=== PATIENT | female | born 1955 | race Caucasian/White ===

== ENCOUNTER 2022-04-15 00:20 | Day surgery (SDC) | payer MEDICARE, SELFPAY ==
[2022-04-02 10:45] VITALS: BMI 22.4
--- NOTE | 2022-04-12 11:09 | SUR.PREOP ---
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 Left message on [place] machine.
--- NOTE | 2022-04-14 17:23 | PM.HPGS ---
History of Present Illness History of Present Illness Consent: Risks, benefits, and alternatives have been discussed and questions answered. Patient agrees to proceed with procedure. Chief complaint: neoplasm screening Narrative: Anna Arceo is a 66 year old female reerred for colon cancer screening. 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 Gender identity (if verbalized by the patient): Female Spiritual care concerns: No Meds Home Medications and Allergies Home Medications Medication Instructions Recorded Confirmed Type amlodipine 10 mg tablet 10 mg PO DAILY #90 tabs 01/10/22 04/15/22 Rx Allergies Allergy/AdvReac Type Severity Reaction Status Date / Time No Known Allergies Allergy Verified 04/15/22 06:21 Exam Resp: Auscultation: clear to auscultation bilaterally Cardio: Rate: regular rate Rhythm: regular rhythm GI: GI Palp: Yes Soft to palpation and No Tenderness to palpation present (GI) Assessment and Plan Assessment and plan (1) Screening for malignant neoplasm of colon: Code(s): Z12.11 - Encounter for screening for malignant neoplasm of colon Status: Acute Assessment and Plan: Colonoscopy with possible biopsy or polypectomy or cautery or injection of substances.
[2022-04-15 06:22] VITALS: BP 152/91; PULSE 76; RESP 18; TEMP 36.4; O2SAT 97; BMI 21.9
[2022-04-15] MEDS: LACTATED RINGERS 1,000 ML 150 ML IV CONT (06:34)
--- NOTE | 2022-04-15 07:28 | WPDANESEPPF ---
Anes - Initial Pre Proc Eval Procedure: Operation Date: 04/15/22 07:30 Proposed Procedures p Screening Colonoscopy - Abdon Tejeda MD Date/Time: 04/15/22 07:28 Surgeon: Abdon Tejeda MD Pre Op Diagnosis: neoplasm screening Patient Data Age: 66 Gender: F Height: 1.55 m Weight: 52.8 kg Last Vital Signs Temp 97.5 F L 04/15/22 06:22 Pulse 76 04/15/22 06:22 Resp 18 04/15/22 06:22 BP 152/91 H 04/15/22 06:22 Pulse Ox 97 04/15/22 06:22 O2 Del Method Room Air 04/15/22 06:22 Allergies Allergy/AdvReac Type Severity Reaction Status Date / Time No Known Allergies Allergy Verified 04/15/22 06:21 Home Medications Medication Instructions Recorded Confirmed Type amlodipine 10 mg tablet 10 mg PO DAILY #90 tabs 01/10/22 04/15/22 Rx Patient hx anesthesia problems: none Family hx anesthesia problems: none Results Review: All pre-operative results and documents have been reviewed as part of the pre-operative evaluation. 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 Informed Consent: The patient's anesthetic plan and its attendant risks and benefits were discussed with the patient/family/POA. Questions were solicited and answers provided to the satisfaction of the patient/family/POA.
[2022-04-15 07:48] VITALS: BP 124/73; PULSE 60; RESP 19; O2SAT 99
[2022-04-15 07:58] VITALS: BP 123/76; PULSE 58; RESP 14; O2SAT 100
[2022-04-15 08:08] VITALS: BP 152/83; PULSE 59; RESP 22; O2SAT 100
== END 2022-04-15 08:15 | disposition home or self-care (01) ==
PROVIDERS: PCP Nurse Practitioner Family; Visit Provider Internal Medicine Gastroenterology
PROC: 0DJD8ZZ Inspection of Lower Intestinal Tract, Via Natural or Artificial Opening Endoscopic (ICD-10-PCS; CPT 45378; principal; 2022-04-15 07:30)
DX: Z12.11 Encounter for screening for malignant neoplasm of colon (principal); D12.0 Benign neoplasm of cecum
CPT/HCPCS: 45380; 45381; 88305; J2704; J7120

== ENCOUNTER 2022-05-06 07:58 | Outpatient (CLI) | payer MEDICARE, SELFPAY ==
--- NOTE | 2022-05-06 08:47 | ECG_ITS ---
Measurements Intervals [place] Rate: 61 P: 68 DC: 191 QRS: 49 QRSD: 130 T: 29 QT: 443 QTc: 448 Interpretive Statements SINUS RHYTHM WITH SINUS ARRHYTHMIA INCOMPLETE LEFT BUNDLE BRANCH BLOCK [120+ ms QRS DURATION, 80+ ms Q/S IN V1/V2, 85+ ms R IN I/aVL/V5/V6] NO PREVIOUS ECG AVAILABLE FOR COMPARISON Electronically Signed On 05-06-2022 17:00:17 CDT by Damian Parr M.D.
[2022-05-06 09:19] LABS: Hematocrit 37.3 % (37.0-47.0); Hemoglobin 12.4 g/dL (12.0-15.0)
== END 2022-05-06 07:59 | disposition home or self-care (01) ==
LOC: ANHSURGERY 08:02
PROVIDERS: Anesthesiology; PCP Nurse Practitioner Family; Visit Provider Surgery
DX: Z01.818 Encounter for other preprocedural examination (principal); D12.6 Benign neoplasm of colon, unspecified; R93.1 Abnormal findings on diagnostic imaging of heart and coronary circulation; I44.7 Left bundle-branch block, unspecified
CPT/HCPCS: 36415; 85014; 85018; 86850; 86900; 86901; 93005

== ENCOUNTER 2022-05-07 13:52 | Inpatient (IN) | payer MEDICARE, SELFPAY ==
[2022-05-06 07:53] VITALS: BP 142/72; PULSE 70; RESP 18; TEMP 37.1; O2SAT 100; BMI 22.6
--- NOTE | 2022-05-06 07:53 | PC.NURSE ---
PRE-OP INSTRUCTIONS, PLEASE READ CAREFULLY Report to the Outpatient Waiting Room, entrance under the green pavilion located off [facility], at time _0730_ on date _05/07/22_. OR Time: _0930_. PACK A SMALL OVERNIGHT BAG - A mask is required within the hospital. - You and your visitor will be asked to self-screen and do not enter if you have any COVID symptoms. - Only one visitor and NO children visitors are allowed at this time. - The patient visitor is requested to leave or wait in car when not with patient due to restrictions. Patients may have clear liquids (water, carbonated beverages, clear teas, apple juice) until 3 hours prior to surgery (0630 AM) with a maximum of 20 ounces. - No food from midnight until time of surgery Take the following medications with a SIP of water the morning of surgery: _AMLODIPINE_ Medications to discontinue per physician _MULTIVITAMIN_, States last dose was 05/05/22_ Please no make-up, nail upper sorbian, hairspray, perfume, deodorant, or body powder the day of surgery. No jewelry (including any body piercings) or valuables the day of surgery, leave them at home. Please take a shower or bath the night before, or the morning of, surgery with an antibacterial soap. Wear comfortable, loose fitting clothing. - Jewelry must be removed prior to entering the operating room. Rings and piercings that are not removed may be cut off. - The hospital will not accept responsibility for valuables. - Please leave all valuables, including medications, at home the day of surgery. If you are going home after surgery, a licensed pick up driver must drive you home. - NO public transportation without another adult. - We recommend that an adult stay with you for 24 hours following discharge. - We also recommend that you do not drive, make important decision, drink alcoholic beverages, or take any drugs that were not prescribed by your health care provider for at least 24 hours after your discharge time. Follow any additional instructions given to you from your surgeon. DIET, BOWEL PREP, PRE-OP ANTIBIOTICS, HIBICLENS SHOWER DAY BEFORE AND AM OF SURGERY If you or anyone in your household have experienced Covid symptoms in the past week, please notify your surgeon or the nurse liaison at the phone number below for possible testing. Instructions given to ____PT and asked if any additional questions and then verbalized understanding. Patient advised to call surgeon office or pre surgery nurse liaison [phone] if any additional questions.
--- NOTE | 2022-05-06 13:28 | WPDANESEPPF ---
Anes - Initial Pre Proc Eval Procedure: Operation Date: 05/07/22 09:30 Proposed Procedures p Laparoscopic Right Hemicolectomy, Davinci Assisted - Piter Gonzalez DO Date/Time: 05/06/22 13:28 Surgeon: Piter Gonzalez DO Pre Op Diagnosis: tubular adenoma of colon Patient Data Age: 66 Gender: F Height: 1.55 m Weight: 54.5 kg Last Vital Signs Temp 37.1 C 05/06/22 07:53 Pulse 70 05/06/22 07:53 Resp 18 05/06/22 07:53 BP 142/72 H 05/06/22 07:53 Pulse Ox 100 05/06/22 07:53 O2 Del Method Room Air 05/06/22 07:53 Allergies Allergy/AdvReac Type Severity Reaction Status Date / Time No Known Allergies Allergy Verified 05/06/22 08:15 Home Medications Medication Instructions Recorded Confirmed Type amlodipine 10 mg tablet 10 mg PO DAILY #90 tabs 04/15/22 05/06/22 Rx erythromycin 500 mg tablet See Rx Instructions .Route 05/03/22 05/06/22 Rx .COMPLEX #6 tabs neomycin 500 mg tablet See Rx Instructions .Route 05/03/22 05/06/22 Rx .COMPLEX #6 tabs multivitamin 1 tablet PO QAM 05/06/22 05/06/22 History ECG: Date of Service: 05/06/22 Procedure(s): CA 12 lead EKG Accession Number(s): [id number] cc: ~ ? Measurements Intervals? [place]? Rate: ? 61 ? P:? 68 [place]: ? 191? QRS:? 49 QRSD: ? 130? T:? 29 QT: ? 443? QTc:? 448? Interpretive Statements SINUS RHYTHM WITH SINUS ARRHYTHMIA INCOMPLETE LEFT BUNDLE BRANCH BLOCK [120+ ms QRS DURATION, 80+ ms Q/S IN V1/V2, 85+ ms R IN I/aVL/V5/V6] NO PREVIOUS ECG AVAILABLE FOR COMPARISON Electronically Signed On 05-06-2022 17:00:17 CDT by Damian Parr M.D. Patient hx anesthesia problems: none Family hx anesthesia problems: none Results Review: All pre-operative results and documents have been reviewed as part of the pre-operative evaluation. [facility] Past Medical History Medical History (Updated 05/06/22 @ 13:29 by Mateusz Abdul MD) BMI 21.0-21.9, adult Body mass index [BMI] 22.0-22.9, adult Hypertension Tubular adenoma of colon Surgical History Surgical History H/O lumpectomy History of elbow surgery Family History Family History Father Lung cancer Tobacco abuse Mother Hypertension Arthritis Sibling Hypertension Unknown Heart disease Arthritis Social History Social History Smoking status: Never smoker Second hand tobacco smoke exposure: No Alcohol intake: never Substance use: never Substance use type: does not use Living arrangements: alone 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 Informed Consent: The patient's anesthetic plan and its attendant risks and benefits were discussed with the patient/family/POA. Questions were solicited and answers provided to the satisfaction of the patient/family/POA.
[2022-05-07] VITALS (13 sets, daily range): BP systolic 123–152; BP diastolic 57–91; PULSE 58–92; RESP 12–20; TEMP 36–36.6; O2SAT 95–100
--- NOTE | 2022-05-07 08:46 | WPDHPUPDATE1 ---
History and Physical Update Update Date/Time: 05/07/22 08:46 History and Physical has been reviewed, including an updated exam of the patient. There are NO changes in the patient's condition. Risks, benefits, and alternatives have been discussed and questions answered. Patient agrees to proceed with procedure.
[2022-05-07] MEDS: LACTATED RINGERS 1,000 ML 30 ML IV CONT ×2 (09:00→12:38)
[2022-05-07] MEDS: KETOROLAC 15 MG/ML VIAL (*BKC) IV PUSH (09:20)
[2022-05-07] MEDS: ACETAMINOPHEN 500 MG TABLET 1000 MG PO ×2 (09:20→16:00)
[2022-05-07] MEDS: ceFAZolin 2 GM/D5W 50 ML 2 GM/50 ML BAG IVPB (09:29)
[2022-05-07] MEDS: metroNIDAZOLE 500 MG/ISO 100ML 500 MG/100 ML BAG 100 MG IVPB (09:29)
--- NOTE | 2022-05-07 12:44 | W.PM.PROC2 ---
Procedure Note - Detailed Date of Procedure 05/07/22 Pre-op Diagnosis tubular adenoma of colon Post-op Diagnosis Same Procedure Performed Laparoscopic right hemicolectomy with ileocolic anastomosis, da Earlene assisted Surgeon Piter Gonzalez DO Anesthesia General and Local (Exparel) Indications This is a 66-year-old woman who presented with a recent finding a large polyp on colonoscopy. She underwent a screening colonoscopy on 04/15/2022 and was found to have a large cecal polyp that was unable to be removed endoscopically. This was biopsied and tattooed. Pathology showed evidence of tubular adenoma. She had no other concerning risk factors for colon cancer. Discussions were made with the patient about treatment options and decision was made to proceed with robotic assisted laparoscopic right hemicolectomy. Findings Laparoscopic right hemicolectomy with ileocolic anastomosis was performed. The tattooed region was identified at the cecum and no other intra-abdominal abnormalities were noted. A robotic assisted laparoscopic approach was utilized. A medial to lateral mobilization was performed and a high ligation of the ileocolic vessels was performed. The right colon was then removed and a [id number] isoperistaltic ileocolic anastomosis was performed using a 45 mm Sureform robotic stapler. ICG was utilized to confirm adequate perfusion to the proximal and distal resection margins and again after the anastomosis to confirm adequate perfusion to the anastomosis. Description of Procedure Procedure as well as risks, benefits, and alternatives were discussed with the patient. Written consent was obtained and placed chart prior to procedure. Patient was brought back to surgical suite. She was placed supine on operating table. Time-out was done to confirm patient and procedure. She was then intubated by the anesthesia department. Her abdomen was prepped and draped in sterile fashion using chlorhexidine prep. A 12 mm left upper quadrant incision was made using a 15 blade scalpel and a 5 mm Optiview trocar was then advanced through the abdominal layers under direct visualization. Once inside the abdominal cavity, carbon dioxide insufflation was used to create a pneumoperitoneum. The camera was inserted in the abdominal cavity was carefully inspected. The tattooed region of the colon was identified but no other abnormalities were seen. The patient was then placed in slight Trendelenburg position and rotated to the left. An 8 mm incision was made in the suprapubic midline region and an 8 mm trocar was inserted under direct visualization. Another 8 mm incision was made in the left lower quadrant and an 8 mm trocar was inserted under direct visualization. One more 8 mm incision was made in the left lateral abdomen an 8 mm trocar was inserted under direct visualization. The 5 mm port was then removed and a 12 mm robotic port was placed under direct visualization. Exparel was infiltrated locally around the lateral abdominal vieira bilaterally. The robotic arms were then brought up to the bedside and secured to the ports and the robotic camera and instruments were inserted. I then moved over to the robotic console and took control of the camera and instruments. Carefully inspected the abdominal cavity. The omentum and transverse colon were reflected cephalad over the stomach and liver. The cecum was then tented anteriorly towards the right lower quadrant abdominal wall and the ileocolic pedicle was visualized. Scissors with electrocautery were then used to score on the inferior surface of the ileocolic pedicle and the retroperitoneal plane was carefully entered. The medial to lateral dissection was carried out carefully using scissors with electrocautery. I identified the duodenum and swept this posteriorly while the remainder of the ileocolic pedicle was carefully isolated. The ileocolic vein and artery were then ligated separately using the vessel sealer.
[2022-05-07] MEDS: fentaNYL CITRATE INJ (*CRX) 100 MCG/2 ML VIAL 25 MCG IV PUSH ×4 (13:04→13:30)
[2022-05-07] MEDS: LACTATED RINGERS 1,000 ML 100 ML IV CONT (14:59)
--- NOTE | 2022-05-07 16:37 | PC.NURSE ---
Acetamenophen dosage due at 14:00 missed, pt. arrived late to floor. Ok per Vane in Pharmacy to miss dose.
[2022-05-08] MEDS: ACETAMINOPHEN 500 MG TABLET 1000 MG PO ×5 (00:28→23:58)
[2022-05-08] MEDS: LACTATED RINGERS 1,000 ML 100 ML IV CONT (03:18)
[2022-05-08 03:37] VITALS: BP 126/60; PULSE 56; RESP 18; TEMP 36.6; O2SAT 96
[2022-05-08 05:39] LABS: Basophils Percent Auto 0.1 % (0.2-1.2); Hemoglobin 11.8 g/dL (12.0-15.0); Immature Granulocyte Absolute 0.05 K/mm3 (0.00-0.031); Immature Granulocyte Percent A 0.4 % (0-0.5); Lymphocytes Absolute Auto 0.69 K/mm3 (0.9-3.2); Lymphocytes Percent Auto 5.8 % (18.3-44.2); Mean Corpuscular HGB Conc 32.8 g/dl (32-36); Mean Corpuscular Hemoglobin 30.1 pg (26-34); Mean Corpuscular Volume 91.8 fl (80-100); Mean Platelet Volume 9.9 fl (7.4-10.4); Monocytes Absolute Auto 0.7 K/mm3 (0.1-0.6); Monocytes Percent Auto 5.8 % (2.6-8.5); Neutrophils Absolute Auto 10.4 K/mm3 (1.3-6.7); Neutrophils Percent Auto 87.9 % (45.5-73.1); Platelet Count Result 262 k/mm3 (150-375); Red Blood Count 3.92 M/mm3 (4.2-5.4); Red Cell Distribution Width 13.8 % (11.5-14.5); White Blood Count 11.9 K/mm3 (4.5-10.0)
[2022-05-08 05:48] LABS: Anion Gap 2 mmol/L (8-16); Blood Urea Nitrogen 7 mg/dL (7-17); Calcium 8.7 mg/dL (8.4-10.2); Carbon Dioxide 24 mmol/L (22-30); Chloride 106 mmol/L (98-107); Estimated CRCL calculation 46 ml/min; Estimated Glomerular Filt Rate > 60; Glucose 124 mg/dL (65-110); Sodium 132 mmol/L (137-145)
[2022-05-08 07:53] VITALS: BP 128/67; PULSE 72; RESP 16; TEMP 36.3; O2SAT 97
[2022-05-08] MEDS: amLODIPine BESYLATE 5 MG TABLET 10 MG PO (09:29)
[2022-05-08] MEDS: ENOXAPARIN 40 MG/0.4 ML SYRINGE SUB-Q (09:30)
--- NOTE | 2022-05-08 09:53 | PM.PNGS ---
Progress Note: A&P Assessment and Plan (1) Tubular adenoma of colon: Code(s): D12.6 - Benign neoplasm of colon, unspecified Status: Acute Assessment and Plan: POD#1 and doing well. Will advance to full liquids. Stop IV fluids. Encouraged increasing activity and walking the halls today. Pathology pending. Repeat labs tomorrow. (2) Hypertension: Qualifiers: Hypertension type: unspecified Qualified Code(s): I10 - Essential (primary) hypertension Code(s): I10 - Essential (primary) hypertension Status: Acute Assessment and Plan: BP stable. Home medications continued post-op. Subjective Subjective Date/Time Seen: 05/08/22 09:10 Post Op day: 1 (Laparoscopic R hemicolectomy, da Earlene assisted) Patient reports: tolerating liquids well, flatus, diarrhea (two small liquid stools this am) and afebrile Interval history: Patient sitting in the chair for breakfast this morning. She is doing well and pain is being controlled with Tylenol. No nausea or bloating with clear liquids. Tolerating walking in the room. No specific complaints at this time. Review of Systems Review of Systems: All systems reviewed & are unremarkable except as noted in HPI and below Exam Const: General: comfortable and no acute distress Orientation/consciousness: patient oriented x3 Resp: Effort & Inspection: normal respiratory effort Auscultation: clear to auscultation bilaterally Cardio: Rate: regular rate Rhythm: regular rhythm GI: Inspection: non-distended and incision (incisions dry with glue intact) GI Palp: Yes Soft to palpation, Yes Tenderness to palpation present (GI) (incisional) and No Guarding due to palpation present (GI) Auscultation: normal bowel sounds (good BS) Neuro: General: moves all extremities and no focal motor deficits Extrem: General: no calf tenderness and no edema Psych: Mental Status: mental status grossly normal Insight: Good insight present (Psych) Objective Data Vital Signs Vital Signs: Vital Signs - 24 hr 05/07/22 12:38 05/07/22 12:50 05/07/22 13:05 Temperature 97.5 F L Pulse Rate 85 67 81 Respiratory Rate 12 14 20 Blood Pressure 134/71 133/70 144/91 H Pulse Oximetry 95 99 100 Oxygen Delivery Simple Face Mask Simple Face Mask Room Air Oxygen Flow Rate 8 8 05/07/22 13:20 05/07/22 13:35 05/07/22 13:50 Temperature Pulse Rate 86 71 70 Respiratory Rate 20 16 20 Blood Pressure 152/80 H 138/80 134/73 Pulse Oximetry 99 97 97 Oxygen Delivery Room Air Room Air Room Air Oxygen Flow Rate 05/07/22 14:15 05/07/22 15:10 05/07/22 14:15 Temperature 96.8 F L 96.8 F L Pulse Rate 78 78 Respiratory Rate 18 18 Blood Pressure 140/67 140/67 Pulse Oximetry 95 95 Oxygen Delivery Room Air Oxygen Flow Rate 05/07/22 14:30 05/07/22 15:00 05/07/22 16:13 Temperature 97.4 F L 97.1 F L 97 F L Pulse Rate 80 78 92 Respiratory Rate 20 20 18 Blood Pressure 139/77 131/60 138/72 Pulse Oximetry 96 98 97 Oxygen Delivery Oxygen Flow Rate 05/07/22 19:11 05/07/22 20:00 05/07/22 23:29 Temperature 97.1 F L 97.8 F Pulse Rate 65 58 L Respiratory Rate 16 17 Blood Pressure 123/71 131/71 Pulse Oximetry 100 97 Oxygen Delivery Room Air Oxygen Flow Rate 05/08/22 03:37 05/08/22 07:53 Temperature 97.8 F 97.4 F L Pulse Rate 56 L 72 Respiratory Rate 18 16 Blood Pressure 126/60 128/67 Pulse Oximetry 96 97 Oxygen Delivery Oxygen Flow Rate Intake/Output Intake/Output: Intake & Output 05/05/22 05/06/22 05/07/22 05/08/22 23:59 23:59 23:59 23:59 Intake Total 670 1200 Output Total 700 800 Balance -30 400 Meds/Results Medications: Active Medications Generic Name Dose Route Start Last Admin Trade Name Freq PRN Reason Stop Dose Admin Acetaminophen 1,000 mg 05/07/22 13:52 05/08/22 06:05 Acetaminophen 500 Mg Tablet PO 1,000 mg Q6HR ANTHONY Administration Amlodipine Besylate 10 mg 05/08/22 09:00
[2022-05-08 13:48] VITALS: BP 110/75; PULSE 60; RESP 12; TEMP 36.4; O2SAT 100
[2022-05-08 18:06] VITALS: BP 124/66; PULSE 62; RESP 16; TEMP 36.2; O2SAT 100
[2022-05-08 20:21] VITALS: BP 104/52; PULSE 60; RESP 12; TEMP 36.4; O2SAT 99
[2022-05-09 00:25] VITALS: BP 115/64; PULSE 64; RESP 20; TEMP 36.9; O2SAT 97
[2022-05-09 05:11] VITALS: BP 126/68; PULSE 60; RESP 16; TEMP 36.4; O2SAT 97
[2022-05-09] MEDS: ACETAMINOPHEN 500 MG TABLET 1000 MG PO ×2 (05:57→12:10)
--- NOTE | 2022-05-09 08:09 | P.PNGS_ITS ---
Progress Note: A&P Assessment and Plan (1) Cecal polyp: Code(s): K63.5 - Polyp of colon Status: Acute Assessment and Plan: Will advance to regular diet today. Possibly home this afternoon if continuing to progress. Increase activity. Subjective Subjective Date/Time Seen: 05/09/22 08:09 Interval history: Doing well. Bowels moving. tolerating full liquids. No bloating or nausea. Pain controlled. Exam 2 GI: Inspection: non-distended and incision (intact with glue) Auscultation: normal bowel sounds Objective Data Vital Signs Vital Signs: Vital Signs - 24 hr 05/08/22 12:00 05/08/22 13:48 05/08/22 18:06 Temperature 36.4 C 36.2 C L Pulse Rate 60 62 Respiratory Rate 12 16 Blood Pressure 110/75 124/66 Pulse Oximetry 100 100 Oxygen Delivery Room Air 05/08/22 20:21 05/08/22 20:00 05/09/22 00:25 Temperature 36.4 C 36.9 C Pulse Rate 60 64 Respiratory Rate 12 20 Blood Pressure 104/52 L 115/64 Pulse Oximetry 99 97 Oxygen Delivery Room Air 05/09/22 05:11 Temperature 36.4 C Pulse Rate 60 Respiratory Rate 16 Blood Pressure 126/68 Pulse Oximetry 97 Oxygen Delivery Intake/Output Intake/Output: Intake & Output 05/06/22 05/07/22 05/08/22 05/09/22 23:59 23:59 23:59 23:59 Intake Total 670 3760 50 Output Total 700 2000 900 Balance -30 1760 -850 Meds/Results Medications: Active Medications Generic Name Dose Route Start Last Admin Trade Name Freq PRN Reason Stop Dose Admin Acetaminophen 1,000 mg 05/07/22 13:52 05/09/22 05:57 Acetaminophen 500 Mg Tablet PO 1,000 mg Q6HR ANTHONY Administration Amlodipine Besylate 10 mg 05/08/22 09:00 05/08/22 09:29 Amlodipine Besylate 5 Mg Tablet PO 10 mg DAILY ANTHONY Administration Enoxaparin Sodium 40 mg 05/08/22 09:00 05/08/22 09:30 Enoxaparin 40 Mg/0.4 Ml Syringe SUB-Q 40 mg DAILY ANTHONY Administration Morphine Sulfate 2 mg 05/07/22 13:52 Morphine Sulfate (*Crx) 2 Mg/Ml Inj IV PUSH Q2H PRN Pain Rated 4-6 Morphine Sulfate 4 mg 05/07/22 13:52 Morphine Sulfate (*Crx) 4 Mg/Ml Inj IV PUSH Q2H PRN Pain Rated 7-10 Ondansetron HCl 4 mg 05/07/22 13:52 Ondansetron Inj 4 Mg/2 Ml Vial IV PUSH Q4H PRN Nausea And Vomiting Oxycodone HCl 2.5 mg 05/07/22 13:52 Oxycodone Hcl (*Crx) 2.5 Mg Tab Ir PO Q4H PRN Pain Rated 4-6 Oxycodone HCl 5 mg 05/07/22 13:52 Oxycodone Hcl (*Crx) 5 Mg Tab Ir PO Q4H PRN Pain Rated 7-10
[2022-05-09] MEDS: ENOXAPARIN 40 MG/0.4 ML SYRINGE SUB-Q (08:51)
[2022-05-09] MEDS: amLODIPine BESYLATE 5 MG TABLET 10 MG PO (08:53)
[2022-05-09 09:04] LABS: Hematocrit 38.6 % (37.0-47.0); Hemoglobin 12.6 g/dL (12.0-15.0); Mean Corpuscular HGB Conc 32.6 g/dl (32-36); Mean Corpuscular Hemoglobin 30.4 pg (26-34); Mean Platelet Volume 9.8 fl (7.4-10.4); Platelet Count Result 267 k/mm3 (150-375); Red Blood Count 4.15 M/mm3 (4.2-5.4); Red Cell Distribution Width 14.1 % (11.5-14.5); White Blood Count 8.3 K/mm3 (4.5-10.0)
[2022-05-09 09:11] LABS: Anion Gap 4 mmol/L (8-16); Blood Urea Nitrogen 9 mg/dL (7-17); Calcium 9.2 mg/dL (8.4-10.2); Carbon Dioxide 25 mmol/L (22-30); Chloride 104 mmol/L (98-107); Estimated CRCL calculation 52 ml/min; Estimated Glomerular Filt Rate > 60; Glucose 91 mg/dL (65-110); Potassium 3.8 mmol/L (3.4-5.0); Sodium 133 mmol/L (137-145)
[2022-05-09 14:25] VITALS: BP 114/55; PULSE 80; RESP 16; TEMP 36.4; O2SAT 100
--- NOTE | 2022-05-09 16:38 | PM.DS ---
DS: Admitting Diagnosis Discharge Date 05/09/22 Admitting Diagnosis Polyp of Cecum DS: Discharge Diagnosis Discharge Diagnosis (1) Tubulovillous adenoma of colon: Code(s): D12.6 - Benign neoplasm of colon, unspecified Status: Acute DS: Summary Hospital Course Reason for hospitalization: Cecal polyp Hospital Course: This is a 66-year-old woman who presented for robotic assisted laparoscopic right hemicolectomy on 05/07/2022 for a tubular adenoma the cecum. Surgery was uncomplicated and she was admitted to the surgical postoperatively. She was started on a clear liquid diet and her diet and activity were gradually advanced as tolerated. On postop day 1 she was doing well and was advanced to a full liquid diet. Her pain was well controlled and she was getting up with limited assistance. On postop day 2 she was advanced to a regular diet. She was tolerating this well and was remaining hemodynamically stable. The pathology came back as a tubulovillous adenoma within the cecum. She was tolerating her regular diet and bowels were moving. She was discharged on 05/09/2022. Status at Discharge Functional status at discharge: independent ambulation Overall status at discharge: patient is progressing back to baseline Time Spent with Patient Time attestation: Total time spent providing and/or coordinating discharge services: Time spent: Less than 30 minutes Exam Resp: Effort & Inspection: normal respiratory effort Auscultation: clear to auscultation bilaterally Cardio: Rate: regular rate Rhythm: regular rhythm Heart sounds: S1 normal heart sound present and S2 normal heart sound present GI: Inspection: non-distended and incision ( Intact with glue) GI Palp: Yes Soft to palpation, Yes Tenderness to palpation present (GI) ( incisional) and No Guarding due to palpation present (GI) DS: Data Data Completed and Pending Completed studies during hospitalization: Pending at discharge 05/07/22 12:07 Surgical [PTH] Routine Discharge Plan Discharge Attending physician on discharge: Piter Gonzalez Consulting providers: Cherri Neil Discharging Clinician: Piter Gonzalez Patient Disposition: Home, Self-Care Activity: other - see discharge instructions Diet: low fiber Wound Care Instructions: other - see discharge instructions Discharge Instructions: Postop instructions no lifting greater than 10 lb for the next 6 weeks continue soft, low-fiber diet for the next week, then may resume regular diet without restrictions walk around house at least 10-15 minutes 4 times daily take OTC Tylenol 500 mg 2 tablets every 6 hours as needed for pain call office if pain is not controlled with Tylenol call office for worsening pain, fevers, problems with bowels moving, or other concerns with incisions Patient Instructions: Antibiotic Form, Amlodipine (By mouth) Stand Alone Forms: General Discharge Information Follow-up/Referrals: Piter Gonzalez, DO [Physician] - Keep Reg. Scheduled Appt. Discharge Medications: Continued multivitamin Tablet 1 tablet PO QAM amlodipine 10 mg tablet 10 mg PO DAILY Qty: 90 0RF Label Comments: QAM Discontinued neomycin 500 mg tablet See Rx Instructions .ROUTE .COMPLEX Qty: 6 0RF Rx Instructions: Take 2 tablets by mouth at 1PM, 2PM, and 11PM; erythromycin 500 mg tablet See Rx Instructions .ROUTE .COMPLEX Qty: 6 0RF Rx Instructions: Take 2 tablets by mouth at 1PM, 2PM, and 11PM; No Action ciprofloxacin HCl [Cipro] 500 mg tablet 500 mg PO Q12H 5 Days Qty: 10 0RF metronidazole 500 mg tablet 500 mg PO Q12H 5 Days Qty: 10 0RF Date of admission: 05/07/22 13:52 Primary Care Provider: Melvin Mayfield Admitting Provider: Piter Gonzalez Attending physician on admission: Piter Gonzalez Condition: Improved
== END 2022-05-09 17:40 | disposition home or self-care (01) | DRG 331 ==
LOC: ANH2MED 13:55
PROVIDERS: Nurse Practitioner Family; Admitting Provider Surgery; PCP Nurse Practitioner Family; Visit Provider Surgery
PROC: 0DTF4ZZ Resection of Right Large Intestine, Percutaneous Endoscopic Approach (ICD-10-PCS; principal; 2022-05-07 09:30)
DX: D12.6 Benign neoplasm of colon, unspecified (principal); I10 Essential (primary) hypertension
CPT/HCPCS: 36415; 80048; 85014; 85018; 85025; 85027; 86850; 86900; 86901; 88309; 93005; A9270; C9290; J0690; J1100; J1170; J1650; J1885; J2250; J2405; J2704; J2710; J3010; J7030; J7120

== ENCOUNTER 2022-05-14 00:07 | Emergency (ER) | payer MEDICARE, SELFPAY ==
[2022-05-14] VITALS (22 sets, daily range): BP systolic 101–136; BP diastolic 50–63; PULSE 69–93; RESP 16–28; TEMP 36.9; O2SAT 95–100
--- NOTE | ~2022-05-14 | CT_ITS ---
EXAMINATION: CT abdomen pelvis w con DATE: 05/14/2022 01:14 INDICATION: Right lower quadrant abdominal pain. Diarrhea. TECHNIQUE: Computed tomography (CT) of the abdomen and pelvis was performed with 100 mL Omnipaque 350 intravenous contrast. Automated exposure control and iterative reconstruction technique were employe d. The dose-length product was 186.57 mGy-cm. COMPARISON: None. FINDINGS: The visualized portions of the lung bases demonstrate mild atelectasis. No pleural effusion . The heart size is normal. No pericardial effusion. There are cysts in the liver measuring up to 3.1 cm. The gallbladder, spleen, pancreas, adrenal glands, and kidneys are normal. There is mild wall th ickening of the colon, consistent with colitis. There is liquid stool in the colon correlating with t he symptom of diarrhea. There are changes of ileocolic anastomosis. The periuterine veins and left ov alex vein are enlarged, consistent with pelvic venous insufficiency. There are no pathologically enl arged lymph nodes. There is physiologic fluid in the pelvis. There is gas in left abdominal wall, con sistent with recent surgery. There is mild lumbar spondylosis. IMPRESSION: 1. Colitis. 2. Pelvic venous insufficiency. Reviewed, dictated and finalized at location A.
--- NOTE | 2022-05-14 00:29 | ED.NAVMDI ---
HPI - Nausea/Vomiting/Diarrhea General Chief complaint: Nausea/Vomiting/Diarrhea Stated complaint: diarrhea and abd pain s/p colectomy Time Seen by Provider: 05/14/22 00:20 History of Present Illness HPI Narrative: 66-year-old female presents to the emergency room for evaluation of increased frequency of diarrhea. Patient states she recently had a colon polyp and appendectomy 7 days ago is experiencing loose and watery stools since her procedure. States today in a 2-hour period she experienced 5 diarrhea stools. Denies any blood in her stool. Complains of a mild right lower quadrant abdominal pain. Denies fever. Related Data Home Medications Medication Instructions Recorded Confirmed multivitamin 1 tablet PO QAM 05/06/22 05/06/22 Allergies Allergy/AdvReac Type Severity Reaction Status Date / Time No Known Allergies Allergy Verified 05/14/22 00:15 Review of Systems Review of Systems: CONSTITUTIONAL: Denies fever, chills, or sweats. EYES: Denies visual changes, redness, or discharge. ENT: Denies rhinorrhea, congestion, sore throat, or otalgia. CARDIOVASCULAR: Denies chest pain, palpitations, or edema. RESPIRATORY: Denies cough or dyspnea. GASTROINTESTINAL: Reports right lower quadrant pain, diarrhea GENITOURINARY: Denies dysuria or hematuria. SKIN: Denies rash or itching. MUSCULOSKELETAL: Denies back pain, joint pain, or myalgia. NEUROLOGIC: Denies headache, numbness, dizziness, or weakness. PSYCHIATRIC: Denies anxiety or depression. 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 HEAD: Normocephalic, atraumatic. EYES: Conjunctivae normal, PERRLA and EOMI. CHEST: Clear to auscultation. No respiratory distress. No wheezes rales or rhonchi. No tenderness. HEART: Regular rate and rhythm. No murmur heard. Normal peripheral pulses. ABDOMEN: Soft, right lower quadrant tenderness, nondistended, normal active bowel sounds. EXTREMITIES: Normal range of motion. No edema. No clubbing or cyanosis SKIN: Warm, dry, no rash. No noted wounds NEURO: No focal deficits. Alert and oriented x3. MAEW. CN's II-XI intact bilaterally, normal gait PSYCH: Cooperative. Normal mood and affect. Course Vital Signs Vital signs: Vital Signs Temperature 36.9 C 05/14/22 00:11 Pulse Rate 83 05/14/22 00:11 Respiratory Rate 20 05/14/22 00:11 Blood Pressure 136/51 L 05/14/22 00:11 Pulse Oximetry 100 05/14/22 00:11 Oxygen Delivery Room Air 05/14/22 00:11 Temperature 36.9 C 05/14/22 00:11 Pulse Rate 77 05/14/22 01:16 Respiratory Rate 18 05/14/22 01:16 Blood Pressure 119/63 05/14/22 01:16 Pulse Oximetry 100 05/14/22 01:16 Oxygen Delivery Room Air 05/14/22 00:11 MDM - Nausea/Vomiting/Diarrhea Lab Data Result diagrams: 05/14/22 00:32 05/14/22 00:32 Labs: Lab Results 05/14/22 05/14/22 05/14/22 Range/Units 00:32 00:32 00:32 WBC 16.5 H (4.5-10.0) K/mm3 RBC 4.20 (
[2022-05-14 00:40] LABS: Basophils Absolute Auto 0.1 K/mm3 (0.0-0.1); Basophils Percent Auto 0.3 % (0.2-1.2); Eosinophils Absolute Auto 0.1 K/mm3 (0-0.3); Eosinophils Percent Auto 0.5 % (0-4.4); Hematocrit 38.6 % (37.0-47.0); Hemoglobin 12.6 g/dL (12.0-15.0); Immature Granulocyte Absolute 0.08 K/mm3 (0.00-0.031); Immature Granulocyte Percent A 0.5 % (0-0.5); Lymphocytes Absolute Auto 0.35 K/mm3 (0.9-3.2); Lymphocytes Percent Auto 2.1 % (18.3-44.2); Mean Corpuscular HGB Conc 32.6 g/dl (32-36); Mean Corpuscular Volume 91.9 fl (80-100); Mean Platelet Volume 9.6 fl (7.4-10.4); Monocytes Absolute Auto 0.9 K/mm3 (0.1-0.6); Monocytes Percent Auto 5.3 % (2.6-8.5); Neutrophils Absolute Auto 15.1 K/mm3 (1.3-6.7); Neutrophils Percent Auto 91.3 % (45.5-73.1); Platelet Count Result 292 k/mm3 (150-375); Red Cell Distribution Width 13.9 % (11.5-14.5); White Blood Count 16.5 K/mm3 (4.5-10.0)
[2022-05-14] MEDS: SODIUM CHLORIDE 0.9% IV 1,000 ML 999 ML IV CONT ×2 (00:45→02:18)
[2022-05-14 00:50] LABS: Anion Gap 17 mmol/L (8-16); Blood Urea Nitrogen 18 mg/dL (7-17); Calcium 9.4 mg/dL (8.4-10.2); Carbon Dioxide 15 mmol/L (22-30); Chloride 102 mmol/L (98-107); Estimated CRCL calculation 52 ml/min; Estimated Glomerular Filt Rate > 60; Glucose 98 mg/dL (65-110); Potassium 3.9 mmol/L (3.4-5.0); Sodium 134 mmol/L (137-145)
--- NOTE | 2022-05-14 00:55 | PC.NURSE ---
Lab called at this time to add Lipase to blood work sent at earlier time.
[2022-05-14 01:07] LABS: Lipase 78 U/L (23-300)
[2022-05-14 02:04] LABS: Lactic Acid Reflex 0.8 mmol/L (0.7-2.0)
[2022-05-14] MEDS: CIPROFLOXACIN 500 MG TAB PO (02:56)
[2022-05-14] MEDS: metroNIDAZOLE 250 MG TABLET 500 MG PO (02:56)
[2022-05-14 03:08] LABS: Appearance Urine Slightly Cloudy (Clear); Bilirubin Urine 1+ (Negative); Blood Urine 1+ (Negative); Color Urine Yellow (Yellow); Glucose Urine UA Negative (Negative); Ketones Urine 4+ mg/dL (Negative); Leukocyte Esterase Ur Trace LEU/UL (Negative); Nitrate Urine Negative (Negative); Protein Urine Negative (Negative); Urobilinogen Urine 0.2 mg/dL (<2.0)
[2022-05-14 03:22] LABS: Add Urine Microscopic? YES; Bacteria Urine 2+ /hpf; RBC Urine 21-50 /hpf (0-2); Squamous Epithelial Cell Urine Moderate /hpf (Few); WBC Clumps Urine Present /HPF; WBC Urine 51-75 /hpf
[2022-05-14 03:23] LABS: Mucus Urine Few /lpf
== END 2022-05-14 04:00 | disposition home or self-care (01) ==
PROVIDERS: Emergency Provider Nurse Practitioner Family; PCP Nurse Practitioner Family
DX: K52.9 Noninfective gastroenteritis and colitis, unspecified (principal); I10 Essential (primary) hypertension; Z90.49 Acquired absence of other specified parts of digestive tract; Z86.010 Personal history of colon polyps; Z98.890 Other specified postprocedural states; I87.2 Venous insufficiency (chronic) (peripheral); R10.31 Right lower quadrant pain
CPT/HCPCS: 36415; 74177; 80048; 81001; 83605; 83690; 85025; 87086; 87088; 96360; 96361; 99284; A9270; J7030; Q9967

== ENCOUNTER 2023-01-20 09:44 | Outpatient (CLI) | payer MEDICARE, SELFPAY ==
--- NOTE | ~2023-01-20 | MM_ITS ---
EXAMINATION: MM screening abby BI w joselyn HISTORY: Screening mammogram TECHNIQUE: Craniocaudal and mediolateral oblique 3-D tomosynthesis images were obtained and synthetic 2-D images were generated. CAD analysis was submitted and interpreted. COMPARISON: No prior mammogram is available for comparison at this institution. BREAST PARENCHYMAL COMPOSITION: There are scattered areas of fibroglandular density. FINDINGS: RIGHT BREAST: An asymmetry is present in the middle third of the inner breast on the craniocaudal vie w. LEFT BREAST: No suspicious mass, calcification, or architectural distortion are identified to suggest malignancy. IMPRESSION: 1. Right breast asymmetry. 2. Additional mammographic views and possible breast ultrasound are recommended. BI-RADS Category 0: Incomplete: Needs additional imaging evaluation. Reviewed, dictated and finalized at location A. IMPRESSION: 1. Right breast asymmetry. 2. Additional mammographic views and possible breast ultrasound are recommended . BI-RADS Category 0: Incomplete: Needs additional imaging evaluation.
--- NOTE | ~2023-01-20 | DEXA_ITS ---
Bone Density Report Name: TIERRA LEMUS Age: 67 Sex: Female Ethnicity: White Date of : 1955 Indication: postmenopausal; screening for osteoporosis; height loss; Referring Provider: KAREN FIGUEREDO Study: Bone densitometry was performed. Exam Date: January 20, 2023 Accession number: [id number] Bone Density: Region BMD T-score Z-score Classification AP Spine(L1-L4) 0.612 -4.0 -2.1 Osteoporosis Femoral Neck (Left) 0.556 -2.6 -1.0 Osteoporosis Total Hip (Left) 0.657 -2.3 -1.0 Osteopenia Femoral Neck (Right) 0.452 -3.6 -2.0 Osteoporosis Total Hip (Right) 0.663 -2.3 -1.0 Osteopenia Total Hip Mean 0.660 -2.3 -1.0 Osteopenia World Health Organization criteria for BMD impression classify patients as: Normal (T-score at or above -1.0), Osteopenia (T-score between -1.0 and -2.5), or Osteoporosis (T-score at or below -2.5). 10-year Fracture Risk: FRAX not reported because: Some T-score for Spine Total or Hip Total or Femoral Neck at or below -2.5 Clinical Information Provided by Patient: Patient maximum height was 61 Menopause Age: 47 Onset of menses at age 14 Number of children 2 Impression: The patient has osteoporosis, based on the Total Spine T-score. Discussion: HIGH RISK OF FRACTURE. BONE DENSITY IS UNDESIRABLY LOW AT ONE OR MORE SKELETAL SITES, CONSISTENT WITH OSTEOPOROSIS. ALSO, BONE DENSITY IS LOWER THAN EXPECTED FOR AGE AND SEX AT ONE OR MORE SKELETAL SITES; RECOMMEND A DILIGENT SEARCH FOR SECONDARY CAUSES OF BONE LOSS. This patient's lowest T-score meets the World Health Organization's (WHO) criteria for osteoporosis at one or more sites (T-score -2.5 or below). In untreated patients, the risk of osteoporotic fracture increases approximately two-fold for each 1.0 SD decrease in T-score. Low bone density is not the only risk factor for fracture; also consider factors such as patient's age, frailty or poor health, risk of falling, risk of injury, previous osteoporotic fracture, family history of osteoporosis, cigarette smoking, low body weight, etc. Not everyone with low bone mineral density has osteoporosis; osteomalacia and other metabolic bone disorders should also be considered. Patients who have osteoporosis should be evaluated for specific diseases and conditions (secondary causes) that may cause or contribute to bone loss. The [place] [employer] Endocrinologists (AACE) and National Osteoporosis Foundation (NOF) recommend pharmacologic intervention for all postmenopausal women whose T-score is in this range. Also, this patient's bone mineral density is below the range considered normal for healthy age-, sex-, and race-matched controls at least one site (Z-score -2.0 or below). This warrants careful evaluation for diseases and conditions that may contribute to accele
== END 2023-01-20 09:45 | disposition home or self-care (01) ==
LOC: ANHIMG 09:45
PROVIDERS: PCP Family Medicine; Visit Provider Nurse Practitioner Family
DX: Z12.31 Encounter for screening mammogram for malignant neoplasm of breast (principal); Z78.0 Asymptomatic menopausal state; Z91.89 Other specified personal risk factors, not elsewhere classified; R92.8 Other abnormal and inconclusive findings on diagnostic imaging of breast; M81.0 Age-related osteoporosis without current pathological fracture; M85.852 Other specified disorders of bone density and structure, left thigh; M85.851 Other specified disorders of bone density and structure, right thigh
CPT/HCPCS: 77063; 77067; 77080

== ENCOUNTER 2023-07-07 11:32 | Outpatient (CLI) | payer MEDICARE, SELFPAY ==
--- NOTE | ~2023-07-07 | MMUS_ITS ---
EXAMINATION: MM diagnostic abby RT w joselyn, US breast RT limited HISTORY: Right breast asymmetry on screening mammogram TECHNIQUE: Additional 3-D tomosynthesis images of the right breast were performed and synthetic 2-D i mages were generated. CAD analysis was submitted and interpreted. High resolution limited right breas t ultrasound was performed. COMPARISON: 01/20/2023 BREAST PARENCHYMAL COMPOSITION: There are scattered areas of fibroglandular density. FINDINGS: MAMMOGRAPHIC FINDINGS: There is a persistent asymmetry in the middle third of inner breast on the craniocaudal view which so mewhat disperses with spot compression. No suspicious interval change is identified. ULTRASOUND: There is no evidence of focal abnormal solid or cystic mass in the vicinity of the mammographic findi ng in question. IMPRESSION: 1. Probably benign right breast asymmetry. 2. Recommend 6 month follow-up bilateral diagnostic mammogram and possible right breast ultrasound. BI-RADS category 3, probably benign findings. Reviewed, dictated and finalized at location A. IMPRESSION: 1. Probably benign right breast asymmetry. 2. Recommend 6 month follow-up bilateral diagnostic mammogram and possible righ t breast ultrasound. BI-RADS category 3, probably benign findings.
== END 2023-07-07 11:33 | disposition home or self-care (01) ==
PROVIDERS: PCP Family Medicine; Visit Provider Nurse Practitioner Family
DX: R92.8 Other abnormal and inconclusive findings on diagnostic imaging of breast (principal)
CPT/HCPCS: 76642; 77061; 77065; G0279

== ENCOUNTER 2024-01-06 10:52 | Outpatient (CLI) | payer MEDICARE, SELFPAY ==
--- NOTE | ~2024-01-06 | MM_ITS ---
EXAMINATION: MM diagnostic abby BI w joselyn HISTORY: Right breast mammographic asymmetry reported on 01/20/2023 screening mammogram TECHNIQUE: ML, MLO and CC 3-D tomosynthesis images of both breasts were performed and synthetic 2-D i mages were generated. Rolled medial and lateral craniocaudal tomosynthesis views and generated synthe tic 2-D images of right breast. CAD analysis was submitted and interpreted. COMPARISON: 01/20/2023ilateral screening mammogram 07/07/2023 diagnostic right mammogram and Limited right breast ultrasound BREAST PARENCHYMAL COMPOSITION: There are scattered areas of fibroglandular density. FINDINGS: No suspicious mass or architectural distortion, malignant calcification, skin thickening or retraction or significant new or developing density is detected. IMPRESSION: 1. No mammographic evidence of malignancy 2. Routine annual mammographic screening is recommended BI-RADS Category 1: Negative Reviewed, dictated and finalized at location A.
== END 2024-01-06 10:53 | disposition home or self-care (01) ==
PROVIDERS: PCP Family Medicine; Visit Provider Nurse Practitioner Family
DX: R92.8 Other abnormal and inconclusive findings on diagnostic imaging of breast (principal)
CPT/HCPCS: 77062; 77066; G0279

== ENCOUNTER 2024-08-27 08:44 | Outpatient (CLI) | payer MEDICARE, SELFPAY ==
--- NOTE | ~2024-08-27 | NM_ITS ---
EXAMINATION: NM bettye stress w perfusion DATE: 08/27/2024 11:31 [facility] ACTIVITIES COORDINATOR INDICATION: Dyspnea TECHNIQUE: Rest images were obtained following intravenous administration of 11.2 mCi Tc99m tetrofosm in (Myoview). The patient was infused intravenously with Lexiscan (regadenoson). Then, 34.6 mCi Tc99m tetrofosmin (Myoview) was administered intravenously, and stress images were obtained. Data was grey nstructed into short axis and horizontal and vertical long axis SPECT images. Gated SPECT images were also obtained. COMPARISON: None. FINDINGS: There is no definite reversible or fixed perfusion abnormality to suggest ischemia or infar ction. There is no segmental wall motion abnormality. Left ventricular ejection fraction measures 7 8%. IMPRESSION: 1. No definite ischemia or infarct. 2. Normal left ventricular ejection fraction measuring 78%. Reviewed, dictated and finalized at location B. ACTIVITIES COORDINATOR
--- NOTE | 2024-08-27 08:50 | EST_ITS ---
Patient Info Name: Anna Arceo Age: 69 years : 1955 Gender: Female Ht: 60 in Wt: 118 lbs BSA: 1.51 m2 Exam Date: 08/27/2024 10:00 AM Exam Location: [facility] Lab Patient Status: Outpatient Admit Date: 08/27/2024 Staff Ordering Physician: Tyrone Boyce DO Attending Provider: Tyrone Boyce DO Exercise Technologist: Jessy Finn RDCS Exercise Physician: Tyrone Boyce DO Exam Type: CA stress bettye w NM Study Info Indications R06.09 - Other forms of dyspnea A regadenoson stress test was performed. Summary 1. 1. Inconclusive lexiscan stress test for ischemic ST changes by ECG criteria due to baseline LBBB. 2. 2. Baseline hypertension. 3. 3. Nuclear scan to follow and will be reported separately. Please correlate with it. 4. 4. Patient informed of the above results. Protocol: Lexiscan Stress ECG Details Stage: REST Duration (min): 0 min : 56 sec HR (bpm): 55 SBP (mmHg): 141 DBP (mmHg): 84 Stage: REST Duration (min): 6 min : 33 sec HR (bpm): 74 SBP (mmHg): 141 DBP (mmHg): 84 Stage: STAGE 1 Duration (min): 0 min : 59 sec HR (bpm): 89 SBP (mmHg): 165 DBP (mmHg): 94 Stage: RECOVERY Duration (min): 1 min : 0 sec HR (bpm): 96 SBP (mmHg): 165 DBP (mmHg): 94 Stage: RECOVERY Duration (min): 2 min : 0 sec HR (bpm): 92 SBP (mmHg): 165 DBP (mmHg): 94 Stage: RECOVERY Duration (min): 3 min : 0 sec HR (bpm): 98 SBP (mmHg): 152 DBP (mmHg): 91 Stage: RECOVERY Duration (min): 3 min : 5 sec HR (bpm): 98 SBP (mmHg): 152 DBP (mmHg): 91 Rest HR: 74 bpm Peak HR: 100 bpm Rest Sys BP: 141 mmHg Peak Sys BP: 165 mmHg Max Pred HR: 152 bpm % Max Pred HR: 66 % Target HR: 129 bpm Max RPP: 16,500 bpm*mmHg Termination Reason: Completed protocol Cardiac Symptoms: Shortness of breath Total Time: 1 min : 0 sec Rest Orta BP: 84 mmHg Peak Orta BP: 94 mmHg Total Dose: 0.4 mg Resting ECG Sinus rhythm, LBBB. Stress ECG No ST changes. Arrhythmias None. Report Signatures
== END 2024-08-27 08:45 | disposition home or self-care (01) ==
PROVIDERS: PCP Family Medicine; Visit Provider Internal Medicine Cardiovascular Disease
DX: R06.09 Other forms of dyspnea (principal)
CPT/HCPCS: 78452; 93017; A9502; J2785

== ENCOUNTER 2025-06-22 11:51 | Outpatient (CLI) | payer MEDICARE, SELFPAY ==
--- NOTE | ~2025-06-22 | DEXA_ITS ---
Bone Density Report Name: TIERRA LEMUS Age: 69 Sex: Female Ethnicity: White Date of : 1955 Indication: postmenopausal osteoporosis; height loss; Referring Provider: ALBINA SOTO Study: Bone densitometry was performed. Exam Date: June 22, 2025 Accession number: [id number] Bone Density: Region BMD T-score Z-score Classification AP Spine(L1-L4) 0.635 -3.7 -1.7 Osteoporosis Femoral Neck (Left) 0.549 -2.7 -1.0 Osteoporosis Total Hip (Left) 0.700 -2.0 -0.5 Osteopenia Femoral Neck (Right) 0.530 -2.9 -1.1 Osteoporosis Total Hip (Right) 0.637 -2.5 -1.1 Osteoporosis Total Hip Mean 0.669 -2.3 -0.8 Osteopenia World Health Organization criteria for BMD impression classify patients as: Normal (T-score at or above -1.0), Osteopenia (T-score between -1.0 and -2.5), or Osteoporosis (T-score at or below -2.5). 10-year Fracture Risk: FRAX not reported because: Some T-score for Spine Total or Hip Total or Femoral Neck at or below -2.5 Previous Exams: Region Exam Age BMD T-score BMD Change BMD Change Date g/cm2 vs Baseline vs Previous AP Spine (L1-L4) 06/22/2025 69 0.635 -3.7 0.024 (3.9%)* 0.024 (3.9%)* 01/20/2023 67 0.612 -4.0 Total Hip(Left) 06/22/2025 69 0.700 -2.0 0.043 (6.6%)* 0.043 (6.6%)* 01/20/2023 67 0.657 -2.3 Total Hip(Right) 06/22/2025 69 0.637 -2.5 -0.025 (-3.8%) -0.025 (-3.8%) 01/20/2023 67 0.663 -2.3 *Denotes significance at 95% confidence level, LSC for AP Spine = 0.022 g/cm2, LSC for Total Hip = 0.027 g/cm2 Clinical Information Provided by Patient: Has used the following medications: Vitamin D, Calcium Patient maximum height was 61 Menopause Age: 47 Onset of menses at age 14 Number of children 2 Impression: The patient has osteoporosis, based on the Total Spine T-score. No significant bone loss was observed. Discussion: INCREASED RISK OF FRACTURE. BONE DENSITY IS UNDESIRABLY LOW AT ONE OR MORE SKELETAL SITES, CONSISTENT WITH POSTMENOPAUSAL OSTEOPOROSIS. This patient's lowest T-score meets the World Health Organization's (WHO) criteria for osteoporosis at one or more sites (T-score -2.5 or below). In untreated patients, the risk of osteoporotic fracture increases approximately two-fold for each 1.0 SD decrease in T-score. Low bone density is not the only risk factor for fracture; also consider factors such as patient's age, frailty or poor health, risk of falling, risk of injury, previous osteoporotic fracture, family history of osteoporosis, cigarette smoking, low body weight, etc. Not everyone with low bone mineral density has osteoporosis; osteomalacia and other metabolic bone disorders should also be considered. Patients who have osteoporosis should be evaluated for specific diseases and conditions (secondary causes) that may cause or contribute to bone loss. The [place] [employer] Clinical Endocrinologists (AACE) and National Osteoporosis Foundation (NOF) recommend pharmacologic intervention for all postmenopausal women whose T-score is in this range. The patient should follow a healthful lifestyle (good nutrition with adequate calcium and vitamin D, and appropriate weight-bearing exercise). Follow-Up: Consider a repeat BMD and Vertebral Fracture Assessment (VFA) exam in 2 years or sooner if medically necessary, to reassess this patient's status. Reported by: ESTHER on 06/22/2025 12:37:00 PM. Reviewed, dictated and finalized at location A.
== END 2025-06-22 11:52 | disposition home or self-care (01) ==
LOC: ANHFOHIMG 11:53
PROVIDERS: PCP Family Medicine; Visit Provider Family Medicine
DX: M81.0 Age-related osteoporosis without current pathological fracture (principal); M85.89 Other specified disorders of bone density and structure, multiple sites; Z78.0 Asymptomatic menopausal state
CPT/HCPCS: 77080

== ENCOUNTER 2025-07-05 09:56 | Outpatient (CLI) | payer MEDICARE, SELFPAY ==
[2025-07-05 11:21] LABS: Hematocrit 41.6 % (37.0-47.0); Hemoglobin 13.4 g/dL (12.0-15.0); Immature Granulocyte Percent A 0.4 % (0-0.5); Lymphocytes Absolute Auto 1.11 K/mm3 (0.9-3.2); Mean Corpuscular HGB Conc 32.2 g/dl (32-36); Mean Corpuscular Hemoglobin 30.4 pg (26-34); Mean Corpuscular Volume 94.3 fl (80-100); Nucleated Red Blood Cells Absolute Auto 0.000 K/mm3 (0.0-0.012); Nucleated Red Blood Cells Perc 0.0 % (0.0-0.2); Platelet Count Result 251 k/mm3 (150-375); Red Blood Count 4.41 M/mm3 (4.2-5.4); White Blood Count 4.5 K/mm3 (4.5-10.0)
[2025-07-05 11:49] LABS: Schistocytes None Seen
[2025-07-05 12:10] LABS: Thyroid Stimulating Hormone 1.560 uIU/mL (0.465-4.680)
== END 2025-07-05 09:57 | disposition home or self-care (01) ==
PROVIDERS: PCP Family Medicine
DX: M81.0 Age-related osteoporosis without current pathological fracture (principal); E55.9 Vitamin D deficiency, unspecified; I11.9 Hypertensive heart disease without heart failure; I51.89 Other ill-defined heart diseases; I44.7 Left bundle-branch block, unspecified
CPT/HCPCS: 36415; 82306; 84443; 85025